=== PATIENT | male | born 1975 | race Caucasian/White ===

== ENCOUNTER 2022-12-24 10:24 | Emergency (ER) | payer BC, SELFPAY ==
[2022-12-24 10:30] VITALS: BP 130/91; PULSE 100; RESP 20; TEMP 36.7; O2SAT 98
--- NOTE | 2022-12-24 10:43 | ED.DENTAL ---
HPI - Dental/Oral General Chief complaint: Dental/Oral Stated complaint: Toothache Time Seen by Provider: 12/24/22 10:43 Source: patient, RN notes reviewed and old records reviewed Mode of arrival: ambulatory Limitations: no limitations History of Present Illness HPI Narrative: 47 year old male who presents to [facility] care with complaints of toothache to left lower jaw region now with some swelling to the left side of his face. Patient reports that he has had problems with the tooth for about 6 months but has had increased pain and now swelling to his face for the past 2 days. Patient recently had heart attack and received cardiac stent on December 07 and also has implanted AICD, is presently on Brilinta for blood thinner. after stent.Patient reports that he has been taking Tylenol and Ibuprofen and used topical medication for dental pain. MD Complaint: tooth pain Location: Tooth # (19) Onset (ago): month(s) (6 increased in past 2 days) Severity scale (1-10): 5 Treatment prior to arrival: topical analgesic and oral analgesic Related Data Home Medications Medication Instructions Recorded Confirmed amiodarone 200 mg tablet 200 mg BID 12/24/22 12/24/22 aspirin 81 mg chewable tablet 81 mg DAILY 12/24/22 12/24/22 atorvastatin 40 mg tablet 40 mg DAILY 12/24/22 12/24/22 carvedilol 12.5 mg tablet 12.5 mg BID 12/24/22 12/24/22 losartan 100 mg tablet 50 mg DAILY 12/24/22 12/24/22 metformin 500 mg BID 12/24/22 12/24/22 spironolactone 25 mg tablet 25 mg DAILY 12/24/22 12/24/22 ticagrelor 90 mg tablet (Brilinta) mg BID 12/24/22 Allergies Allergy/AdvReac Type Severity Reaction Status Date / Time amoxicillin Allergy Rash Verified 12/24/22 10:31 empagliflozin Allergy Vomiting Verified 12/24/22 10:32 [From Jardiance] Review of Systems Review of Systems: CONSTITUTIONAL: Denies fever, chills, or sweats. ENT: Denies rhinorrhea, congestion, sore throat, or otalgia. Reports dental pain to the #19 tooth which has the center of tooth decayed.some left sided facial swelling CARDIOVASCULAR: Denies chest pain, palpitations, or edema. RESPIRATORY: Denies cough or dyspnea. SKIN: Denies rash or itching. MUSCULOSKELETAL: Denies myalgia. NEUROLOGIC: Denies headache All systems reviewed & are unremarkable except as noted in HPI and below PMFSH Past Medical History Medical History (Updated 12/25/22 @ 07:48 by Ivon Herbert NP) Diabetes Hypertension Myocardial infarction Presence of combination internal cardiac defibrillator (ICD) and pacemaker Surgical History Surgical History (Updated 12/25/22 @ 07:48 by Ivon Herbert NP) History of heart artery stent Social History Social History (Updated 12/25/22 @ 07:56 by Ivon Herbert NP) Smoking packs per day: 1 Smoking cigarettes per day: 20.0 Years smoked: 30 Smoking pack-years: 30.00 Tobacco type: cigarettes Additional smoking assessment comments: unsure if he is currently smoking post GA Alcohol intake: unknown Substance use type: does not use Living arrangements: with family Gender identity (if verbalized by the patient): Male Comments At time of signature, agree with nursing past medical, surgical, social and family history. There is no relevant family history pertinent to the presenting complaint Exam Narrative: GENERAL: Chronic ill -appearing, well-nourished, and in no acute distress.color pale HEAD: Normocephalic, atraumatic. EYES: PERRLA and EOMI. ENT: Nares clear, no rhinorrhea or epistaxis. Mucous membranes moist. #19 tooth has hole in center of tooth with obvious caries, minimal redness of gum surrounding tooth, mild left jaw swelling, NECK: Supple.no lymphadenopathy CHEST: Clear to auscultation. No respiratory distress.SAO2 98% on room air HEART: Regular rate and rhythm. No murmur heard. Normal peripheral pulses. SKIN: Warm, dry, no rash. NEURO: No focal deficits. Alert and oriented x3. Course Course Emergency Course: Patient is
== END 2022-12-24 11:15 | disposition home or self-care (01) ==
PROVIDERS: Emergency Provider Registered Nurse; PCP Family Medicine
DX: K02.9 Dental caries, unspecified (principal); E11.9 Type 2 diabetes mellitus without complications; I10 Essential (primary) hypertension; I25.2 Old myocardial infarction; Z95.810 Presence of automatic (implantable) cardiac defibrillator; Z95.5 Presence of coronary angioplasty implant and graft; Z79.82 Long term (current) use of aspirin
CPT/HCPCS: 99203; G0463